=== PATIENT | female | born 1955 | race Caucasian/White ===

== ENCOUNTER 2019-07-18 07:36 | Outpatient (CLI) | payer OTHER, SELFPAY ==
[2019-07-18 07:58] LABS: Hemoglobin 14.8 g/dL (12.0-15.0); Mean Corpuscular HGB Conc 33.6 g/dl (32-36); Mean Corpuscular Hemoglobin 29.6 pg (26-34); Mean Platelet Volume 8.5 fl (7.4-10.4); Platelet Count Result 337 k/mm3 (150-375); Red Cell Distribution Width 13.9 % (11.5-14.5); White Blood Count 8.6 K/mm3 (4.5-10.0)
[2019-07-18 08:13] LABS: Alanine Aminotransferase 17 U/L (4-35); Albumin Level 4.4 g/dL (3.5-5.1); Alkaline Phosphatase 97 U/L (38-126); Aspartate Amino Transferase 26 U/L (14-36); Bilirubin,Total 0.6 mg/dL (0.2-1.3); Blood Urea Nitrogen 11 mg/dL (7-17); Calcium 9.2 mg/dL (8.4-10.2); Carbon Dioxide 28 mmol/L (22-30); Chloride 101 mmol/L (98-107); Cholesterol 155 mg/dL (0-200); Estimated Glomerular Filt Rate > 60; Glucose 106 mg/dL (65-105); HDL Direct 61 mg/dL; Potassium 3.9 mmol/L (3.4-5.0); Sodium 137 mmol/L (137-145); Triglycerides 101 mg/dL (<150)
[2019-07-18 08:24] LABS: LDL Cholesterol Direct 78 mg/dL
[2019-07-18 08:56] LABS: Free T4 Free Thyroxine 0.87 ng/mL (0.78-2.19)
== END 2019-07-18 07:37 | disposition home or self-care (01) ==
PROVIDERS: PCP Family Medicine; Visit Provider Family Medicine
DX: I10 Essential (primary) hypertension (principal); E78.2 Mixed hyperlipidemia; E03.9 Hypothyroidism, unspecified
CPT/HCPCS: 36415; 80048; 80061; 80076; 84439; 84443; 85027

== ENCOUNTER 2019-08-29 07:14 | Outpatient (CLI) | payer OTHER, SELFPAY ==
[2019-08-29 07:54] LABS: Blood Urea Nitrogen 13 mg/dL (7-17); Calcium 9.1 mg/dL (8.4-10.2); Carbon Dioxide 30 mmol/L (22-30); Chloride 100 mmol/L (98-107); Estimated Glomerular Filt Rate > 60; Glucose 102 mg/dL (65-105); Sodium 137 mmol/L (137-145)
== END 2019-08-29 07:15 | disposition home or self-care (01) ==
PROVIDERS: PCP Family Medicine; Visit Provider Nurse Practitioner Family
DX: R73.01 Impaired fasting glucose (principal)
CPT/HCPCS: 36415; 80048

== ENCOUNTER → 2020-07-13 10:01 | Outpatient (CLI) | payer MEDICARE, SELFPAY ==
--- NOTE | ~2020-07-13 | XR_ITS ---
EXAMINATION: XR chest 2V 07/13/2020 10:22 INDICATION: Dyspnea PROCEDURE: 2 view chest COMPARISON: 03/04/2013 FINDINGS: The lungs are clear. The lungs are hyperinflated which is consistent with, but not diagnost ic of chronic obstructive pulmonary disease. The cardiomediastinal silhouette is within normal limit s. There are no pleural effusions. There is no pneumothorax suspected. IMPRESSION: 1: NO ACUTE CARDIOPULMONARY DISEASE. Reviewed, dictated and finalized at location B.
== END ==
PROVIDERS: Visit Provider Family Medicine
DX: R06.00 Dyspnea, unspecified (principal)
CPT/HCPCS: 71046

== ENCOUNTER 2020-07-22 09:43 | Outpatient (CLI) | payer MEDICARE, SELFPAY ==
--- NOTE | ~2020-07-22 | MM_ITS ---
EXAMINATION: MM screening [facility] BI w guru HISTORY: Screening mammogram TECHNIQUE: Craniocaudal and mediolateral oblique 3-D tomosynthesis images were obtained and synthetic 2-D images were generated. CAD analysis was submitted and interpreted. COMPARISON: 08/28/2018, 10/31/2016, 07/22/2011 BREAST PARENCHYMAL COMPOSITION: There are scattered areas of fibroglandular density. FINDINGS: There is no evidence of suspicious mass, calcification, or architectural distortion to sugg est malignancy in either breast. There has been no suspicious interval change. IMPRESSION: 1. No mammographic evidence of malignancy. 2. Recommend routine screening mammography in one year. BI-RADS Category 1: Negative Reviewed, dictated and finalized at location A.
== END 2020-07-22 09:44 | disposition home or self-care (01) ==
LOC: ANHIMG 09:50
PROVIDERS: PCP Family Medicine; Visit Provider Family Medicine
DX: Z12.31 Encounter for screening mammogram for malignant neoplasm of breast (principal)
CPT/HCPCS: 77063; 77067

== ENCOUNTER 2020-08-03 09:24 | Outpatient (CLI) | payer MEDICARE, SELFPAY ==
--- NOTE | ~2020-08-03 | NM_ITS ---
EXAMINATION: NM stress w perf spect multi DATE: 08/03/2020 12:17 INDICATION: Dyspnea TECHNIQUE: Rest images were obtained following intravenous administration of 9.5 mCi Tc99m tetrofosmi n (iWatt). The patient performed an exercise activity. At peak exercise, 28.9 mCi Tc99m tetrofosmin ([employer]view) was administered intravenously, and stress images were obtained. Data was reconstructed in to short axis and horizontal and vertical long axis SPECT images. Gated SPECT images were also obtain ed. COMPARISON: None. FINDINGS: There is normal left ventricular perfusion without definite evidence of reversible or fixed perfusion abnormality to suggest ischemia or infarction. There is normal left ventricular chamber size, wall motion and ejection fraction. Left ventricular ejection fraction measures >70%. IMPRESSION: 1. Normal myocardial perfusion at rest and during stress. 2. Left ventricular ejection fraction measuring >70%. Reviewed, dictated and finalized at location A.
--- NOTE | 2020-08-03 09:47 | EST_ITS ---
Patient Info Name: Lyly Godinez Age: 64 years : 1955 Gender: Female Ht: 65 in Wt: 138 lbs BSA: 1.70 m2 HR: 67 bpm BP: 148 / 94 mmHg Heart Rhythm: Sinus Rhythm Exam Date: 08/03/2020 11:03 AM Exam Location: [facility] Stress Patient Status: Outpatient Admit Date: 08/03/2020 Staff Ordering Physician: Ambrosio Cheatham MD Attending Provider: Ambrosio Cheatham MD Exercise Technologist: Adri Riggs CT Exercise Physician: Saturnino Red DO Exam Type: CA stress test treadmill w NM Study Info Indications R06.00 - Dyspnea, unspecified A nuclear stress test was performed. Summary 1. 1. Negative Sedrick exercise stress test for ischemic ST changes by ECG criteria. 2. 2. Good functional capacity, achieving 7 METs of workload. 3. 3. Baseline hypertension. 4. 4. Appropriate HR response to exercise. 5. 5. Appropriate HR recovery at 1 minute post exercise. 6. 6. Nuclear scan to follow and will be reported separately. Please correlate with it. 7. 7. Patient informed of the above results. Protocol: Sedrick Stress ECG Details Stage: REST Duration (min): 4 min : 19 sec Speed (mph): 0.0 Grade (%): 0 HR (bpm): 71 SBP (mmHg): 148 DBP (mmHg): 94 METS: --- Stage: REST Duration (min): 9 min : 8 sec Speed (mph): 0.0 Grade (%): 0 HR (bpm): 75 SBP (mmHg): 148 DBP (mmHg): 94 METS: --- Stage: STAGE 1 Duration (min): 1 min : 0 sec Speed (mph): 1.7 Grade (%): 10 HR (bpm): 104 SBP (mmHg): 148 DBP (mmHg): 94 METS: --- Stage: STAGE 1 Duration (min): 2 min : 0 sec Speed (mph): 1.7 Grade (%): 10 HR (bpm): 120 SBP (mmHg): 148 DBP (mmHg): 94 METS: --- Stage: STAGE 1 Duration (min): 3 min : 0 sec Speed (mph): 1.7 Grade (%): 10 HR (bpm): 127 SBP (mmHg): 148 DBP (mmHg): 94 METS: --- Stage: STAGE 2 Duration (min): 1 min : 0 sec Speed (mph): 2.5 Grade (%): 12 HR (bpm): 134 SBP (mmHg): 148 DBP (mmHg): 94 METS: --- Stage: STAGE 2 Duration (min): 2 min : 0 sec Speed (mph): 2.5 Grade (%): 12 HR (bpm): 139 SBP (mmHg): 172 DBP (mmHg): 94 METS: --- Stage: STAGE 2 Duration (min): 2 min : 30 sec Speed (mph): 2.5 Grade (%): 12 HR (bpm): 140 SBP (mmHg): 172 DBP (mmHg): 94 METS: --- Stage: RECOVERY Duration (min): 0 min : 29 sec Speed (mph): 0.0 Grade (%): 0 HR (bpm): 139 SBP (mmHg): 172 DBP (mmHg): 94 METS: --- Stage: RECOVERY Duration (min): 1 min : 29 sec Speed (mph): 0.0 Grade (%): 0 HR (bpm): 100 SBP (mmHg): 172 DBP (mmHg): 94 METS: --- Stage: RECOVERY Duration (min): 2 min : 29 sec Speed (mph): 0.0 Grade (%): 0 HR (bpm): 89 SBP (mmHg): 172 DBP (mmHg): 94 METS: --- Stage: RECOVERY Duration (min): 2 min : 46 sec Speed (mph): 0.0 Grade (%): 0 HR (bpm): 90 S
== END 2020-08-03 09:25 | disposition home or self-care (01) ==
PROVIDERS: PCP Family Medicine; Visit Provider Family Medicine
DX: R06.00 Dyspnea, unspecified (principal)
CPT/HCPCS: 78452; 93017; A9502

== ENCOUNTER 2021-08-23 08:07 | Outpatient (CLI) | payer MEDICARE, SELFPAY ==
--- NOTE | ~2021-08-23 | MM_ITS ---
EXAMINATION: MM screening [facility] BI w guru HISTORY: Screening TECHNIQUE: Craniocaudal and mediolateral oblique 3-D tomosynthesis images were obtained and synthetic 2-D images were generated. CAD analysis was submitted and interpreted. COMPARISON: Comparison to multiple prior studies sequentially, with oldest reviewed study dated 10/31. BREAST PARENCHYMAL COMPOSITION: Breast composed of scattered areas of fibroglandular density FINDINGS: There is a developing focal asymmetry in the upper outer quadrant of the left breast anteri mery. The right breast is stable without evidence for malignancy. IMPRESSION: 1. Developing left breast asymmetry. 2. Additional mammographic views and possible breast ultrasound are recommended. BI-RADS Category 0: Incomplete: Needs additional imaging evaluation. Reviewed, dictated and finalized at location A. IMPRESSION: 1. Developing left breast asymmetry. 2. Additional mammographic views and possible breast ultrasound are recommended . BI-RADS Category 0: Incomplete: Needs additional imaging evaluation.
== END 2021-08-23 08:08 | disposition home or self-care (01) ==
LOC: ANHIMG 08:08
PROVIDERS: PCP Family Medicine; Visit Provider Family Medicine
DX: Z12.31 Encounter for screening mammogram for malignant neoplasm of breast (principal); R92.8 Other abnormal and inconclusive findings on diagnostic imaging of breast
CPT/HCPCS: 77063; 77067

== ENCOUNTER 2021-09-06 13:19 | Outpatient (CLI) | payer MEDICARE, SELFPAY ==
--- NOTE | ~2021-09-06 | MMUS_ITS ---
EXAMINATION: MM diagnostic [facility] LT w guru, US breast LT limited HISTORY: Follow-up left breast asymmetry TECHNIQUE: Additional 3-D tomosynthesis images of the left breast were performed and synthetic 2-D im ages were generated. CAD analysis was submitted and interpreted. High resolution Limited left breast ultrasound was performed. COMPARISON: Comparison to multiple prior studies sequentially, with oldest reviewed study dated 10/31. BREAST PARENCHYMAL COMPOSITION: Breast composed of scattered areas of fibroglandular density FINDINGS: MAMMOGRAPHIC FINDINGS: The area of asymmetry is less dense with spot compression and mediolateral views. No discrete mass, a rchitectural distortion or suspicious calcifications. ULTRASOUND: Limited left breast ultrasound: No discrete mass or cyst. There is heterogeneous echotexture in the u pper outer quadrant of the left breast. IMPRESSION: 1. No evidence for malignancy in the left breast. 2. Routine yearly screening mammogram and regular clinical breast examination are recommended. BI-RADS Category 1: Negative Reviewed, dictated and finalized at location A. IMPRESSION: 1. No evidence for malignancy in the left breast. 2. Routine yearly screening mammogram and regular clinical breast examination a re recommended. BI-RADS Category 1: Negative
== END 2021-09-06 13:20 | disposition home or self-care (01) ==
LOC: ANHIMG 13:20
PROVIDERS: PCP Family Medicine; Visit Provider Family Medicine
DX: R92.8 Other abnormal and inconclusive findings on diagnostic imaging of breast (principal)
CPT/HCPCS: 76642; 77061; 77065; G0279

== ENCOUNTER → 2021-09-28 09:44 | Outpatient (CLI) | payer MEDICARE, SELFPAY ==
--- NOTE | ~2021-09-28 | DEXA_ITS ---
Bone Density Report Name: JOSAFAT PARKINSON Age: 65 Sex: Female Ethnicity: White Date of : 1955 Indication: osteopenia; height loss; postmenopausal Referring Provider: MAXWELL GAINES Study: Bone densitometry was performed. Exam Date: September 28, 2021 Accession number: [id number] Bone Density: Region BMD T-score Z-score Classification AP Spine (L1-L4) 0.897 -1.4 0.5 Osteopenia Femoral Neck (Left) 0.778 -0.6 1.0 Normal Total Hip (Left) 0.766 -1.4 -0.1 Osteopenia Femoral Neck (Right) 0.636 -1.9 -0.3 Osteopenia Total Hip (Right) 0.728 -1.8 -0.4 Osteopenia Total Hip Mean 0.747 -1.6 -0.3 Osteopenia World Health Organization criteria for BMD impression classify patients as: Normal (T-score at or above -1.0), Osteopenia (T-score between -1.0 and -2.5), or Osteoporosis (T-score at or below -2.5). 10-year Fracture Risk(1): Major Osteoporotic Fracture 10% Hip Fracture 1.6% Reported Risk Factors: [place] (), Neck BMD=0.636, BMI=22.2 (1) FRAX(R) Version 3.08. Fracture probability calculated for an untreated patient. Fracture probability may be lower if the patient has received treatment. Previous Exams: Region Exam Age BMD T-score BMD Change BMD Change Date g/cm2 vs Baseline vs Previous AP Spine(L1-L4) 09/28/2021 65 0.897 -1.4 -0.138* -0.085* 04/12/2010 54 0.982 -0.6 -0.052* 0.011 04/02/2009 53 0.972 -0.7 -0.063* 0.012 03/21/2008 52 0.959 -0.8 -0.075* -0.075* 09/15/2004 48 1.034 -0.1 Total Hip(Left) 09/28/2021 65 0.766 -1.4 -0.071* -0.008 04/12/2010 54 0.775 -1.4 -0.063* 0.000 04/02/2009 53 0.775 -1.4 -0.063* -0.002 03/21/2008 52 0.777 -1.4 -0.060* -0.060* 09/15/2004 48 0.838 -0.9 Total Hip(Right) 09/28/2021 65 0.728 -1.8 -0.080* -0.050* 04/12/2010 54 0.778 -1.3 -0.030* 0.013 04/02/2009 53 0.765 -1.5 -0.043* -0.015 03/21/2008 52 0.780 -1.3 -0.028* -0.028* 09/15/2004 48 0.808 -1.1 *Denotes significance at 95% confidence level, LSC for AP Spine = 0.022 g/cm2, LSC for Total Hip = 0.027 g/cm2 Clinical Information Provided by Patient: Has used the following medications: Calcium, MTV Patient maximum height was 65.5 Menopause Age: 47 Drinks caffeinated beverages Onset of menses at age 12 Number of children 1 -----
== END ==
PROVIDERS: PCP Family Medicine; Visit Provider Family Medicine
DX: M85.89 Other specified disorders of bone density and structure, multiple sites (principal)
CPT/HCPCS: 77080

== ENCOUNTER 2022-11-04 08:13 | Outpatient (CLI) | payer MEDICARE, SELFPAY ==
--- NOTE | ~2022-11-04 | MM_ITS ---
EXAMINATION: MM screening [facility] BI w guru HISTORY: Screening mammogram TECHNIQUE: Craniocaudal and mediolateral oblique 3-D tomosynthesis images were obtained and synthetic 2-D images were generated. CAD analysis was submitted and interpreted. COMPARISON: 09/06/2021 diagnostic left mammogram and limited left breast ultrasound, reported negative 08/23/2021, 07/22/2020, 08/28/2018 bilateral screening mammogram examinations BREAST PARENCHYMAL COMPOSITION: There are scattered areas of fibroglandular density. FINDINGS: There is no evidence of suspicious mass, calcification, or architectural distortion to sugg est malignancy in either breast. There has been no suspicious interval change. IMPRESSION: 1. No mammographic evidence of malignancy. 2. Recommend routine screening mammography in one year. BI-RADS Category 1: Negative Reviewed, dictated and finalized at location A.
== END 2022-11-04 08:14 | disposition home or self-care (01) ==
LOC: ANHIMG 08:16
PROVIDERS: PCP Family Medicine; Visit Provider Family Medicine
DX: Z12.31 Encounter for screening mammogram for malignant neoplasm of breast (principal)
CPT/HCPCS: 77063; 77067

== ENCOUNTER 2023-12-26 07:30 | Outpatient (CLI) | payer MEDICARE, SELFPAY ==
--- NOTE | ~2023-12-26 | MM_ITS ---
EXAMINATION: MM screening [facility] BI w guru HISTORY: Screening mammogram TECHNIQUE: Craniocaudal and mediolateral oblique 3-D tomosynthesis images were obtained and synthetic 2-D images were generated. CAD analysis was submitted and interpreted. COMPARISON: 10/26/2022, 08/23/2021, 07/22/2020 BREAST PARENCHYMAL COMPOSITION:Not Dense. There are scattered areas of fibroglandular density. FINDINGS: No suspicious mass, calcification, or architectural distortion are identified in either olivia ast to suggest malignancy. There has been no suspicious interval change. IMPRESSION: No mammographic evidence of malignancy. Recommend routine screening mammography in one year. BI-RADS Category 1: Negative Reviewed, dictated and finalized at location . ENSATOR
== END 2023-12-26 07:31 | disposition home or self-care (01) ==
PROVIDERS: PCP Family Medicine; Visit Provider Family Medicine
DX: Z12.31 Encounter for screening mammogram for malignant neoplasm of breast (principal)
CPT/HCPCS: 77063; 77067

== ENCOUNTER 2024-09-30 12:05 | Outpatient (CLI) | payer MEDICARE, SELFPAY ==
--- NOTE | ~2024-09-30 | US_ITS ---
EXAMINATION: US carotid duplex BI DATE: 09/30/2024 13:07 INDICATION: Symptoms and signs involving circulatory system TECHNIQUE: Grayscale, color Doppler, and pulsed Doppler images of the cervical carotid arteries were obtained. The degree of vessel stenosis is placed in one of the following categories: normal, <50%, 50-69%, >=70% but less than near- occlusion, near-occlusion, or total occlusion. Note that percent stenosis relative to normal distal artery lumen diameter is indirectly measured from velocity measurements as described by Yuri, et al. Radiology 2003; 229:340-346. Notes: Normal: Peak systolic velocity <125 centimeters/sec and no plaque <50%. Peak systolic velocity <125 (EDV <40; ICA/CCA PSV ratio <2.0; used these factors only a tandem lesions or low cardiac output or contralateral disease) 50-69 %: PSV 125-230 (EDV 40-100; ratio 2-4) >= 70% but less than near occlusion: PSV greater than 230 (EDV > 100; ratio> 4.0) Near Occlusion: PSV that is variable; markedly narrowed lumen Occlusion: Absent flow on color/spectral Doppler and no lumen on morton scale. COMPARISON: None. FINDINGS: RIGHT: The right common carotid artery (CCA) peak systolic velocity (PSV) is 77 cm/s. The right internal carotid artery (ICA) PSV is 66 cm/s. The right ICA end- diastolic velocity (EDV) is 26 cm/s. The right ICA/CCA PSV ratio is 0.9. The external carotid artery (ECA) PSV is 69 cm/s. There is antegrade flow in the right vertebral artery. LEFT: The left CCA PSV is 66 cm/s. The left ICA PSV is 61 cm/s. The left ICA EDV is 23 cm/s. The left ICA/CCA PSV ratio is 0.9. The ECA PSV is 76 cm/s. There is antegrade flow in the left vertebral artery. IMPRESSION: 1. Less than 50% stenosis in the right internal carotid artery by sonographic criteria. 2. Less than 50% stenosis in the left internal carotid artery by sonographic criteria. Reviewed, dictated and finalized at location O. IMPRESSION: 1. Less than 50% stenosis in the right internal carotid artery by sonographic mark lewis. 2. Less than 50% stenosis in the left internal carotid artery by sonographic vladislav malin.
--- OUTSIDE RECORDS SUMMARY | 2024-09-30 12:26 | XMS_ITS | Clinical Summary ---
Author Organization [facility] Address [address] [place] [address] Care Team Providers Care Wheel Press Operator Name Role Phone Ambrosio Cheatham MD Primary Care Provider Source Comments [facility],non-owned Affiliates and Associated Physician Practices is amultiple site organization consisting of ambulatory clinics and hospital sitesin [place], [place], [place] and [place]. This disclosure is being madepursuant to the Care Everywhere program and may not contain all information available regarding this patient. Last updated 17.[facility] Allergies Active Allergy Reactions Criticality Noted Date Comments Benazepril Cough Low 06/21/2021 Penicillins Rash Medium 08/12/2024 Prednisone Other Low 06/21/2021 hypertenison Medications * Be aware that medications may not be up to date on this document. Alwaysverify current medications with the patient. LOSARTAN POTASSIUM PO Take 12.5 mg by mouth once daily Active atorvastatin (LIPITOR) 20 MG tablet Take 1 (one) tablet by mouth at bedtime Active fluticasone propionate (FLONASE) 50 MCG/ACT nasal spray [place] 1 spray into each nostril once daily Active calcium-vitamin D (OS-JOSE 250 PLUS D 125 UNITS) 250-125 MG-UNIT tablet Take 1 (one) tablet by mouth daily with food Active ciprofloxacin-d exAMETHasone (CIPRODEX) 0.3-0.1 % otic suspension Instill 4 (four) drops into both ears 2 times daily Shake well before using. 2 Active Additional Information Patient not taking.Reported on 08/12/2024 losartan-hydroC HLOROthiazide (Hyzaar) 100-12.5 MG tablet Take 1 (one) tablet by mouth once daily 3 Active chlorhexidine (Peridex) 0.12 % solution by Mouth/Throat route 2 times daily 5 Active Encounters Date Type Department Care Team Description 08/12/2024 1:00 PM CDT Office Visit [facility] - ENT [address] [place] [phone] Tom Almeida MD Mixed conductive and sensorineural hearing loss of right ear, unspecified hearing status on contralateral side (Primary Dx); Impacted cerumen of left ear; Dysfunction of right eustachian tube; Mixed conductive and sensorineural hearing loss of right ear with restricted hearing of left ear; Chronic diffuse otitis externa of right ear 08/12/2024 12:30 PM CDT Testing Visit [facility] - ENT [address] [place] [phone] Gonzalez Ivy, PhD Mixed conductive and sensorineural hearing loss of right ear with unrestricted hearing of left ear 08/12/2024 Travel from Last 3 Months Immunizations Immunization Administration Dates Next Due COVID MODERNA BIVALENT 12Y+ 50MCG/0.5ML 06/13/2022 COVID PFIZER BIVALENT 12Y+ 30mcg/0.3ML 10/15/2021 Covid Pfizer primary Monoval ent 12+ yr 0.3ml 05/18/2021,11/03/2020,04/21/2020,2020 INFLUENZA VACCINE 11/12/2020 INFLUENZA VACCINE, ADJUVANTE D, QUADR. (FLUAD QUADRIVALENT; 65Y+) (AIIV4) 11/18/2022,11/16/2021,10/16/2019 INFLUENZA VACCINE, HIGH-DOSE , QUADR. (FLUZONE HIGH-DOSE QUADRIVALENT; 65Y+), 0.7 ML (HD-IIV4) 10/26/2020 Social History Tobacco Use Types Packs/Day Years Used Date Smoking Tobacco: Never Smokeless Tobacco: Never Comments:non smoking househo ld Alcohol Use Standard Drinks/Week Comments Not Currently 0 (1 standard drink = 0.6 oz pur e alcohol) Comments No Sex and Gender Information Value Date Recorded Sex Assigned at Not on file Legal Sex Female 8:27 AM CDT Gender Identity Not on file Sexual Orientation Not on file Last Filed Vital Signs Vital Sign Reading Time Taken Comments Blood Pressure 125/84 08/12/2024 1:03 PM CDT Pulse 73 08/12/2024 1:03 PM CDT Temperature 36.8 C (98.2 F) 07/19/2021 12:30 PM CDT Respiratory Rate 14 07/06/2021 7:37 PM CDT Oxygen Saturation 97% 07/06/2021 7:37 PM CDT Inhaled Oxygen Concentration - - Weight 64 kg (141 lb) 08/12/2024 1:03 PM CDT Height 166.4 cm (5' 5.5) 08/12/2024 1:03 PM CDT Body Mass Index 23.11 08/12/2024 1:03 PM CDT Plan of Treatment Upcoming Encounters Date Type Department Care Team (Late st Contact Info) Description 08/14/2025 12:30 PM CDT Testing Visit [facility] - ENT [address] [place] [phone] Gonzalez Ivy, PhD [address] [place] [address] [place] [address] 08/14/2025 1:00 PM CDT Office Visit [facility] - ENT [address] [place] [phone] Tom Almeida MD [address] [place] [address] [address] [place] [address] Health Maintenance Due Date Last Done Comments BONE DENSITY TESTING 1955 COLOGUARD (AGES 45-75) - COLON CA SCREENING 1955 COLON MONITORING 1955 COLONOSCOPY - COLON CA SCREENING 1955 CT COLONOGRAPHY - COLON CA SCREENING 1955 Colorectal Cancer Screening 1955 FIT - COLON CA SCREENING 1955 FLEX SIG - COLON CA SCREENING 1955 MAMMOGRAM 1955 HEPATITIS C SCREENING 10/03/1972 DTAP/TDAP/TD VACCINES (1 - Tdap) 1973 PNEUMOCOCCAL VACCINE 50+ (1 of 1 - PCV) 2004 ZOSTER VACCINE (1 of 2) 2004 COVID-19 VACCINE (2023- season) 2023 06/05/2023, 11/01/2022, 06/13/2022, Additional history exists DEPRESSION SCREENING 02/07/2024 MEDICARE AWV CALENDAR YEAR 2024 INFLUENZA VACCINE (#1) 2024 , 11/16/2021, 11/12/2020, Additional history exists Respiratory Syncytial Virus (RSV) Vaccine Pt: or over 60 yrs (1 - 1-dose 75+ series) 2029 HEPATITIS B VACCINE Aged Out No longe r eligible based on patient's age to complete this topic HIB VACCINE Aged Out No longer eligi ble based on patient's age to complete this topic HPV VACCINE Aged Out No longer eligi ble based on patient's age to complete this topic MENINGOCOCCAL (Group B) VACCINE SHARED DECISION-MAKING Aged Out No longer eligible based on patient's age to complete this topic MENINGOCOCCAL GROUPS A/C/Y/W VACCINE Aged Out No longer eligible based on patient's age to complete this topic Procedures Procedure Name Priority Date/Time Associated Diagnosis Comments VA REMOVE CERUMEN IMPACTED W INSTR LEFT EAR Routine 08/12/2024 1:24 PM CDT Impacted cerumen of left ear AUDIOLOGY/TYMPANOME TRY ORDER Routine 08/12/2024 1:00 PM CDT from Last 3 Months Results * VA REMOVE CERUMEN IMPACTED W INSTR LEFT EAR (08/12/2024 1:24 PM CDT) Narrative Tom Almeida MD - 08/12/2024 1:24 PM CDT Tom Almeida MD 08/12/2024 1:24 PM Procedure: Binocular Microscopic Removal of Impacted Cerumen Indications: Cerumen impaction obscuring the tympanic membrane. Findings: See main note. Procedure Note: After verbal consent was obtained, the binocular operative microscope was brought into position. An otologic speculum was inserted into the cartilaginous external auditory canal. Cerumen was removed using a combination of cerumen loops, suction, and alligator forceps. There was no bleeding Tom Almeida MD us Tom Almeida MD PROCEDURE/MINOR SURGICAL OR DERABLES Final Result * AUDIOLOGY/TYMPANOMETRY ORDER (08/12/2024 1:00 PM CDT) Gonzalez Grier, PhD - 08/12/2024 1:00 PM CDT HISTORY: Lyly Godinez is a 67 year old female was seen for an assessment of their hearing. The patient reports difficulty hearing in her right ear, but it has improved since her surgery. There is not a report of dizziness. There is a report of tinnitus. There is not a report of otalgia. There is not a report of noise exposure. There is not a history of hearing loss in the family. There is a history of previous ear surgery. Results: Puretone air/bone conduction testing revealed a moderately severe rising to mild sensorineural hearing loss in the right ear and a moderate rising to mild sensorineural hearing loss in the left ear. Speech Pest Control Chemical Technician Thresholds is in good agreement with pure tone average(see speech audiometry for details). Findings were reviewed and discussed with Lyly Godinez following the hearing evaluation. Plan: 1. The risks and benefits of my recommendations, as well as other treatment options were discussed today. 2. I recommend that the patient follow up with their facility, ENT or PCP PRN. 3. Retest hearing annually. 4. HAE via [employer] post dental work. Gonzalez Ivy, Ph.D., YARELI., [facility] Technical Support Consultant Director, Division of Audiology Department of Otolaryngology- Head & Neck Surgery [facility] us Gonzalez Ivy PhD AUDIOLOGY SERVICES ORDERABLES Fi nal Result from Last 3 Months [id number] Member Subscriber Plan / Payer (Ef fective 2020-Present) Name:Lyly Godinez Relation to Subscriber:Self Name:Lyly Godinez Payer ID:[id number] (NAIC) Type:Medicare-Managed Care Address: [address] [phone] [employer] MEDICARE ADV [employer] * Guarantor: BRUEGGEMAN,LYLY Account Type Relation to Patient Date of Phone Billing Address Personal/Family 1955 [address] [place] [address] [employer] Care Teams Wheel Press Operator Relationship Specialty Start Date End Date Ambrosio Cheatham MD [address] [place] [phone] PCP - General Family Medicine 10/01/17
== END 2024-09-30 12:06 | disposition home or self-care (01) ==
PROVIDERS: PCP Family Medicine; Visit Provider Family Medicine
DX: I65.23 Occlusion and stenosis of bilateral carotid arteries (principal); R09.89 Other specified symptoms and signs involving the circulatory and respiratory systems
CPT/HCPCS: 93880